=== PATIENT | male | born 1980 | race Caucasian/White ===

== ENCOUNTER 2023-06-13 05:34 | Observation (INO) ==
[2023-06-13] MEDS ORDERED: Chlorhexidine MOUTHWASH 0.12% 15 ML UDC ONE (05:45)
[2023-06-13] MEDS ORDERED: Buffered Lidocaine 1% SYRIN 1 ml INTRADERM ONE (06:00)
[2023-06-13] MEDS ORDERED: Lactated Ringers 1000 ml BAG 1,000 ML IV SCH ×2 (06:00→10:00)
[2023-06-13] MEDS ORDERED: Famotidine IV 10 MG/ML 2 ml VIAL (20 mg) IV ONE (06:00)
[2023-06-13] MEDS ORDERED: Famotidine IV 10 MG/ML 2 ml VIAL (20 mg) ONE (06:02)
[2023-06-13] MEDS ORDERED: ceFAZolin 2 GM in NS PREMIX 2 GM/100 ML BAG IVPB ONE (06:02)
[2023-06-13] MEDS ORDERED: Lidocaine 1% w EPI 1:100,000 MDV 20 ML VIAL ONE (07:14)
[2023-06-13] MEDS ORDERED: ceFAZolin VIAL VIAL ONE (07:15)
[2023-06-13] MEDS ORDERED: Thrombin 5,000 UNITS(BOVINE) for Ultrasound Guided Pseudoaneursym ONE (07:15)
[2023-06-13] MEDS ORDERED: Gelfoam Sponge SIZE 100 SPONGE ONE (07:15)
[2023-06-13] MEDS ORDERED: Lidocaine 2% PF 5 ML VIAL ONE (07:30)
[2023-06-13] MEDS ORDERED: Midazolam 2 mg/2 ml VIAL 1 mg/ml 2 ml VIAL (2 mg) ONE ×2 (07:30→07:38)
[2023-06-13] MEDS ORDERED: fentaNYL 100 mcg/2 ml 50 MCG/ML VIAL ONE (07:30)
[2023-06-13] MEDS ORDERED: Rocuronium 50 mg VIAL 10 mg/ml 5 ml VIAL (50 mg) ONE ×2 (07:36→08:51)
[2023-06-13] MEDS ORDERED: Propofol 10 MG/ML 20 ML BTL ONE ×2 (07:37→07:46)
[2023-06-13] MEDS ORDERED: Ondansetron 4 mg VIAL 2 MG/ML 2 ml VIAL ONE (07:37)
[2023-06-13] MEDS ORDERED: Dexamethasone IV 4 MG/ML VIAL 1 ml VIAL ONE (07:37)
[2023-06-13] MEDS ORDERED: Phenylephrine 40 mcg/mL 10mL (400mcg) SYRINGE ONE (08:28)
[2023-06-13] MEDS ORDERED: fentaNYL 100 mcg/2 ml 50 MCG/ML VIAL IV PRN (08:33)
[2023-06-13] MEDS ORDERED: Ondansetron 4 mg VIAL 2 MG/ML 2 ml VIAL IV PRN ×2 (08:33→09:29)
[2023-06-13] MEDS ORDERED: Naloxone 0.4 mg VIAL 0.4 mg/ml 1 ml VIAL IV PRN (08:33)
[2023-06-13] MEDS ORDERED: Senna TAB 8.6 mg TAB PO PRN (09:29)
[2023-06-13] MEDS ORDERED: Phenol 1.4% Throat Spray BTL MT PRN (09:29)
[2023-06-13] MEDS ORDERED: Calcium Carb (TUMS) 500 mg CHEW TAB PO PRN (09:29)
[2023-06-13] MEDS ORDERED: Dextran 70/Hypromellose Tears Eye Drops 15 ml BTL (for Artificials Tears) BOTH EYES PRN (09:29)
[2023-06-13] MEDS ORDERED: Morphine 2 MG/ML SYRINGE IV PRN (09:29)
[2023-06-13] MEDS ORDERED: Magnesium Hydroxide LIQ 30 ML UDC PO PRN (09:29)
[2023-06-13] MEDS ORDERED: Benzocaine/Menthol LOZ MT PRN (09:29)
[2023-06-13 13:51] VITALS: BP 145/93
[2023-06-13 20:08] LABS: Rapid COVID-19 Molecular Undetected (Undetected)
== END 2023-06-13 14:15 | disposition home or self-care (01) ==
LOC: SSU 05:34 → OR 05:34
PROVIDERS: ADMIT Neurological Surgery; ATTEND Neurological Surgery
PROC: O.NEPCD (2023-06-13 07:30)